=== PATIENT | male | born 1975 | race Caucasian/White ===

== ENCOUNTER 2020-09-13 03:03 | Emergency (ER) | payer BC ==
[~2020-09-13] VITALS: Ht 180.3 cm; Wt 65.8 kg
--- NOTE | 2020-09-13 03:04 | NUR ---
PT AAOX4. AMBULATORY WITH STEADY GAIT. BIBSELF C/O ABSCESS ON L SIDE OF BACK, REDDENED WITH PUS X FEW DAYS. ER MD AT BEDSIDE FOR WOUND CARE.
[2020-09-13] MEDS ORDERED: LIDOCAINE 1% INJ 50 ML MDV IJ ONE ×2 (03:12→04:00)
[2020-09-13] MEDS ORDERED: SULF1TAB48 PO (03:15)
[2020-09-13] MEDS ORDERED: oxyCODONE/APAP (5/325 MG) 1 UDTAB TABLET PO ONE (03:30)
[2020-09-13] MEDS ORDERED: SULFAMETH/TRIMETH 800/160 MG 1 UDTAB TABLET PO ONE (03:30)
[2020-09-13] MEDS ORDERED: oxyCODONE/APAP (5/325 MG) 1 UDTAB TABLET ONE (03:38)
[2020-09-13] MEDS ORDERED: SULFAMETH/TRIMETH 800/160 MG 1 UDTAB TABLET ONE (03:39)
--- NOTE | 2020-09-13 03:42 | NUR ---
EMT AT BEDSIDE
[2020-09-13 03:50] VITALS: BP 128/79
== END 2020-09-13 04:06 | disposition home or self-care (01) ==
LOC: ER 03:07
DX: L02.212 Cutaneous abscess of back [any part, except buttock and flank] (principal); L03.312 Cellulitis of back [any part except buttock and flank]
CPT/HCPCS: 10060; 99283; J3490